=== PATIENT | female | born 1985 | race Caucasian/White ===

== ENCOUNTER → 2018-01-10 | Outpatient (REF) | payer OTHER ==
[~2018-01-10] MED LIST: AZIT-1 PO; BENZ200C15 PO; CIP500 PO; FERR325C2 PO; GUAI120L3 PO; IBU800 PO; LEVO1IUD2 VG; LOM PO; ONDA4TAB PO; PER PO; PRED20TA6 PO; Work Note; [UNRECOGNIZED DRUG - CODE] PO
== END ==
LOC: ZZSTITCHES 18:00
PROVIDERS: ATTEND Physician Assistant
DX: N39.0 Urinary tract infection, site not specified (principal)
CPT/HCPCS: 87088

== ENCOUNTER → 2018-10-03 | Outpatient (REF) ==
[2018-10-03 09:10] LABS: LDL CHOLESTEROL 128 mg/dl
== END ==
DX: Z02.9 Encounter for administrative examinations, unspecified (principal)

== ENCOUNTER → 2018-12-20 | Outpatient (CLI) | payer OTHER ==
[~2018-12-20] MED LIST changes: +OSE75 PO
== END ==
LOC: LAB 13:02
PROVIDERS: ATTEND Nurse Practitioner Family
DX: J09.X2 Influenza due to identified novel influenza A virus with other respiratory manifestations (principal)
CPT/HCPCS: 87502

== ENCOUNTER 2018-12-23 17:38 | Emergency (ER) | payer OTHER ==
[2018-12-23 17:43] VITALS: BP 125/89
--- NOTE | 2018-12-23 17:46 | ER Report ---
History and Physical Time Seen By MD: 17:46 HPI/ROS CHIEF COMPLAINT: Sore throat, white spots in back of throat HISTORY OF PRESENT ILLNESS: 33-year-old female patient presents to emergency room with complaint of sore throat and white spots the back of throat. Patient states that she was diagnosed with flu on . At that time she was having fevers, nausea, vomiting and body aches. She states she is started on Tamiflu at that time. She states she's not had a fever since Monday and has stopped vomiting since yesterday. She states that today her throat has been hurting significant. She states she does have pustules that she's noted in the back of her throat. She states that she is able to eat and drink without any difficulties but does have significant amounts of discomfort with that. REVIEW OF SYSTEMS: Respiratory: No cough, no dyspnea. Cardiovascular: No chest pain, no palpitations. Gastrointestinal: No vomiting, no abdominal pain. Musculoskeletal: No back pain. Allergies: Coded Allergies: Sulfa (Sulfonamide Antibiotics) (Verified Allergy, Severe, 12/17/12) Home Meds Active Scripts Oseltamivir Phosphate (TAMIFLU) 75 Mg Cap, 1 TAB PO BID, #10 CAP 0 Refills Prov:CHRIS RANGEL APRN SYSTEM ADMINISTRATION MANAGER-C 12/20/18 [Work Note] No Conflict Check Patient seen in the office today. Please excuse from work 08/25/17. Prov:BRODERICK MURGUIA DNP, SYSTEM ADMINISTRATION MANAGER-BC 08/25/17 Reported Medications Levonorgestrel (Mirena) 20 Mcg/24 Hr/Iud Iud, 20 MCG VG, 0 Refills 06/07/11 Discontinued Scripts Guaifenesin/Codeine Phosphate (Codeine-Guaifen 10-100 mg/5 ml) 120 Ml Liquid, 1- 2 TSP PO Q6H PRN for COUGH, #120 ML 0 Refills Prov:BRODERICK MURGUIA DNP, SYSTEM ADMINISTRATION MANAGER-BC 08/25/17 Past Medical/Surgical History Patient has no pertinent medical history. Patient has a surgical history of a bunionectomy on bilateral feet. Reviewed Nurses Notes: Yes Hx Smoking: No Smoking Status: Never Smoker Hx Substance Use Disorder: No Hx Alcohol Use: No Constitutional Vital Sign - Last 24 Hours 12/23/18 17:43 Temp 98.5 Pulse 75 Resp 16 B/P (MAP) 125/89 Pulse Ox 95 O2 Delivery Room Air Physical Exam General Appearance: The patient is alert, has no immediate need for airway protection and no current signs of toxicity. ENT: Patient does have erythema on the soft palate, does have a yellow lesion on that. Respiratory: Chest is non tender, lungs are clear to auscultation. Cardiac: regular rate and rhythm Gastrointestinal: Abdomen is soft and non tender, no masses, bowel sounds normal. Musculoskeletal: Neck: Neck is supple and non tender. Extremities have full range of motion and are non tender. Skin: No rashes or lesions. DIFFERENTIAL DIAGNOSIS: After history and physical exam differential diagnosis was considered for strep, viral pharyngitis, herpetic gingiva stomatitis. Medical Decision Making Data Points Laboratory Hematology Test 12/23/18 17:56 Group A Streptococcus (PCR) Negative (NEGATIVE) Chemistry Test 12/23/18 17:56 Group A Streptococcus (PCR) Negative (NEGATIVE) ED Course/Re-evaluation ED Course Patient was admitted exam room, history and physical were obtained. Differential diagnoses were considered. On examination lungs are clear, heart is regular, patient does have erythema the back of her throat, but she does have yellow lesions on an erythematous base. We did go ahead and test the patient for strep which was negative. It is my thought that the patient likely has a herpetic gingiva stomatitis which is causing her pain. I suspect that she likely had a herpetic infection from a long time ago, which has flared up as a result of the influenza virus the patient has. That has suppressed her immune system and cause this opportunistic infection. We will go ahead and treat her with Magic mouthwash and have her drink with lots of cold fluids. Patient was given a note for work tomorrow. She verbalized understanding and agreement with plan. Decision to Disposition Date: Dec 23, 2018 Decision to Disposition Time: 18:39 Depart Departure Latest Vital Signs Vital Signs Date Time Temp Pulse Resp B/P (MAP) Pulse Ox O2 Delivery O2 Flow Rate FiO2 12/23/18 17:43 98.5 75 16 125/89 95 Room Air Impression: Primary Impression: Herpetic gingivostomatitis Condition: Improved Disposition: HOME OR SELF-CARE Referrals: CHRIS RANGEL APRN SYSTEM ADMINISTRATION MANAGER-C (PCP) Patient Instructions: GENERAL ER DISCHARGE INSTRUCTIONS Additional Instructions: Continue with the Tamiflu Get plenty of rest. Follow up with your primary care provider in the next week. Return to the ER if condition worsens. Try to eat and drink things that are cold to help soothe the throat. DEBRA BATISTA Dec 23, 2018 17:46
[2018-12-23] MEDS ORDERED: LIDOCAINE 2% VISC SLN 15ML UDC MM ONE (18:00)
[2018-12-23] MEDS ORDERED: MAG HYD/AL HYD/SIMETH 30ML UDC MM ONE (18:00)
== END 2018-12-23 18:48 | disposition home or self-care (01) ==
LOC: ER 17:52
DX: B00.2 Herpesviral gingivostomatitis and pharyngotonsillitis (principal)
CPT/HCPCS: 87653; 99282